=== PATIENT | male | born 1985 | race Caucasian/White ===

== ENCOUNTER 2016-11-09 13:36 | Emergency (ER) | payer OTHER, MEDICARE ==
[2016-11-09 13:52] VITALS: BP 164/90
--- NOTE | 2016-11-09 14:04 | PHYS DOC ---
Past Medical History Past Medical History: Anxiety, Bipolar, Schizophrenia, Other Additional Past Medical Histor: INTELLUCTUAL FUNCTION DISORDER Past Surgical History: No Surgical History Alcohol Use: None Drug Use: None Adult General Chief Complaint Chief Complaint: HAND PROBLEM HPI HPI Patient is a 31 year old M who presents with right hand pain and right foot pain. Patient states he was at work and stepped on a nail that went through his boot into his right foot. Patient states 45 minutes later was trying to break up some sheet rock and throw it into the trashcan and hit it with this fist and complains of pain to his hands. Patient sustained no other injuries. Patient has no other complaints. Review of Systems Review of Systems GEN: Denies fevers, chills, sweats HEENT: Denies blurred vision, sore throat CV: Denies chest pain RESP: Denies shortness of air, cough GI: Denies n/v/d NEURO: Denies confusion, dizziness MSK: Right hand and foot pain Current Medications Current Medications Current Medications Medications (Trade) Dose Ordered Sig/Gem Start Time Stop Time Status Last Admin Dose Admin Diphtheria/ Tetanus/Acell Pertussis (Boostrix) 0.5 ml ONCE ONCE 11/09/16 14:15 11/09/16 14:16 DC 11/09/16 14:28 0.5 ML Allergies Allergies Allergies Coded Allergies Type Severity Reaction Last Updated Verified No Known Drug Allergies 01/12/15 No Physical Exam Physical Exam GEN.: No apparent distress. Alert and oriented. HEENT: Head is normocephalic, atraumatic NECK: Supple. LUNGS: CTAB. HEART: RRR, S1, S2 present. Peripheral pulses intact ABDOMEN: Soft, nontender. Positive bowel sounds. EXTREMITIES: Without any cyanosis, tenderness palpation over the fifth metacarpal of the right hand in the proximal phalanx of the third digit. Small puncture wound to the plantar surface of the right foot consistent with a nail NEUROLOGIC: Normal speech, normal tone PSYCHIATRIC: Normal affect, normal mood. SKIN: No ulcerations Current Patient Data Vital Signs Vital Signs Date Time Temp Pulse Resp B/P (MAP) Pulse Ox O2 Delivery O2 Flow Rate FiO2 11/09/16 13:52 98.6 91 24 96 Room Air 98.6 EKG EKG [] Radiology/Procedures Radiology/Procedures X-ray right hand no obvious fracture[] Course & Med Decision Making Course & Med Decision Making Pertinent Labs and Imaging studies reviewed. (See chart for details) ED course: Patient was seen and examined emergency room x-ray of the right hand was ordered and patient's tetanus was updated. Patient does not need an x-ray of the right foot since it was a puncture wound and there is low probability of foreign body. 1453: Patient was updated on x-rays and plan to discharge home on Levaquin for the puncture wound MDM: After reviewing the chart, CC/HPI/PMH, physical exam, [radiological results], I do not believe the patient sustained a significant hand fracture warranting further workup and/or admission at this time. Patient be discharged home on Levaquin for the puncture wound to cover for pseudomonas and strep and staph. Patient is stable for discharge. Additional verbal discharge instructions were provided to the patient and that if symptoms get worse or any new symptoms arise that are worrisome to the patient he is to return to the emergency room immediately [] Dragon Disclaimer Dragon Disclaimer This electronic medical record was generated, in whole or in part, using a voice recognition dictation system. Departure Departure Impression: Primary Impression: Right hand pain Additional Impression: Puncture wound of right foot Disposition: HOME, SELF-CARE Condition: IMPROVED Referrals: Angie SINHA MD (PCP) Patient Instructions: Puncture Wound, [id number] Additional Instructions: Please follow up with your family physician in the next one to 2 days and return if symptoms increase Scripts Levofloxacin (LEVAQUIN) 500 Mg Tablet 1 TAB PO DAILY, #7 TAB Prov: JOSHUA PINEDA DO 11/09/16 Problem Qualifiers JOSHUA PINEDA DO Nov 09, 2016 14:04
[2016-11-09] MEDS ORDERED: DIPHTH,PERTUSS(ACELL),TET TOX 0.5 ML DISP.SYRIN. VAX IM ONE (14:15)
--- NOTE | 2016-11-09 14:39 | RAD ---
Right hand, 3 views, 11/09/2016: History: Pain, injury The lateral view is suboptimal due to technical factors. There is mild deformity of the third metacarpal shaft compatible with an old healed fracture. No acute fracture or dislocation is identified. IMPRESSION: No acute bony abnormality is detected.
[2016-11-09] MEDS ORDERED: LEVO500T59 PO (14:59)
== END 2016-11-09 15:11 | disposition home or self-care (01) ==
LOC: ER 13:36
DX: S91.331A Puncture wound without foreign body, right foot, initial encounter (principal); M79.641 Pain in right hand; F20.9 Schizophrenia, unspecified; W45.0XXA Nail entering through skin, initial encounter; Y93.89 Activity, other specified; Y99.8 Other external cause status; Y92.89 Other specified places as the place of occurrence of the external cause
CPT/HCPCS: 73130; 90471; 90715; 99284-25

== ENCOUNTER 2016-11-24 20:43 | Emergency (ER) | payer OTHER, MEDICARE ==
[~2016-11-24] VITALS: Ht 175.3 cm; Wt 82.1 kg
[~2016-11-24 20:43] MED LIST: LEVO500T59 PO
[2016-11-24 20:51] VITALS: BP 121/63
[2016-11-24] MEDS ORDERED: HYDROcodone/APAP 5/325MG 1 TAB TABLET PO ONE (21:15)
--- NOTE | 2016-11-24 21:25 | PHYS DOC ---
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 He states that he is having pain and discomfort. He states that he cannot move the toe. He has not taken anything for the pain and discomfort. He does have some swelling with some bruising noted. Review of Systems Review of Systems Constitutional: Denies fever or chills [] Eyes: Denies change in visual acuity, redness, or eye pain [] HENT: Denies nasal congestion or sore throat [] Respiratory: Denies cough or shortness of breath [] Cardiovascular: No additional information not addressed in HPI [] GI: Denies abdominal pain, nausea, vomiting, bloody stools or diarrhea [] : Denies dysuria or hematuria [] Musculoskeletal: Denies back pain right second toe pain and discomfort. Integument: Denies rash or skin lesions [] Neurologic: Denies headache, focal weakness or sensory changes [] Endocrine: Denies polyuria or polydipsia [] Current Medications Current Medications Current Medications Medications (Trade) Dose Ordered Sig/Gem Start Time Stop Time Status Last Admin Dose Admin Acetaminophen/ Hydrocodone Bitart (Lortab 5/325) 1 tab 1X ONCE 11/24/16 21:15 11/24/16 21:16 DC 11/24/16 21:14 1 TAB Allergies Allergies Allergies Coded Allergies Type Severity Reaction Last Updated Verified No Known Drug Allergies 01/12/15 No Physical Exam Physical Exam Constitutional: Well developed, well nourished, no acute distress, non-toxic appearance. [] HENT: Normocephalic, atraumatic, bilateral external ears normal, oropharynx moist, no oral exudates, nose normal. [] Eyes: PERRLA, EOMI, conjunctiva normal, no discharge. [] Neck: Normal range of motion, no tenderness, supple, no stridor. [] Cardiovascular:Heart rate regular rhythm Lungs & Thorax: No respiratory distress noted Skin: Warm, dry, no erythema, no rash. [] Extremities: Right second toe tenderness, no cyanosis, no clubbing, ROM intact, no edema. Bruising or discoloration noted slight swelling noted. Peripheral pulses 2+ cap refill brisk less than 2 seconds. Neurologic: Alert and oriented X 3, normal motor function, normal sensory function, no focal deficits noted. [] Psychologic: Affect normal, judgement normal, mood normal. [] Current Patient Data Vital Signs Vital Signs Date Time Temp Pulse Resp B/P (MAP) Pulse Ox O2 Delivery O2 Flow Rate FiO2 11/24/16 21:14 20 Room Air 11/24/16 20:51 98.5 103 99 98.5 EKG EKG [] Radiology/Procedures Radiology/Procedures [] Course & Med Decision Making Course & Med Decision Making Pertinent Labs and Imaging studies reviewed. (See chart for details) X-rays are negative for any bony abnormalities per Dr. Mejia. Patient will be discharged home with recommendations for ice packs on 20 minutes off 20 minutes several times a day elevation as much as possible. Patient's toe will be jb taped to the first great toe. Recommended Tylenol or ibuprofen for pain and discomfort. Patient be discharged home in stable condition signs symptoms to return back to emergency prior has been provided. He was provided with name and number of an orthopedic to follow-up with if he continues to have pain and discomfort. [] Dragon Disclaimer Dragon Disclaimer This electronic medical record was generated, in whole or in part, using a voice recognition dictation system. Departure Departure Impression: Primary Impression: Contusion of toe of right foot Disposition: HOME, SELF-CARE Condition: STABLE Referrals: Angie SINHA MD (PCP) DIETER MORALES MD Patient Instructions: Toe Injuries and Amputations Additional Instructions: X-rays are negative for fractures Activity as tolerated Tylenol or Ibuprofen for pain and discomfort Ice packs on 20 minutes several times a day Elevation as much as possible Jb tape your first and second toe together Followup with orthopedic in 1 week Return to emergency department as needed for signs and symptoms that become worse. Problem Qualifiers Primary Impression: Contusion of toe of right foot Encounter type: initial encounter Toe: lesser toe Damage to nail status: without damage Qualified Codes: S90.121A - Contusion of right lesser toe(s) without damage to nail, initial encounter CRISTI PRASAD APRN Nov 24, 2016 21:25
--- NOTE | 2016-11-25 08:07 | RAD ---
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 AP, lateral and oblique digital radiographs of the right foot were obtained. Mild degenerative changes are seen involving the first MTP joint. No fracture or dislocation of the right foot is seen. No radiopaque foreign body is noted. Impression: No fracture or dislocation of the right foot is seen.
== END 2016-11-24 21:37 | disposition home or self-care (01) ==
LOC: ER 20:43
DX: S90.121A Contusion of right lesser toe(s) without damage to nail, initial encounter (principal); F20.9 Schizophrenia, unspecified; F41.9 Anxiety disorder, unspecified; F31.9 Bipolar disorder, unspecified; W20.8XXA Other cause of strike by thrown, projected or falling object, initial encounter; Y93.89 Activity, other specified; Y99.8 Other external cause status; Y92.89 Other specified places as the place of occurrence of the external cause
CPT/HCPCS: 73630; 99284

== ENCOUNTER 2017-06-01 09:56 | Emergency (ER) | payer SELFPAY, MEDICARE, OTHER ==
[2017-06-01] MEDS: HYDROcodone/APAP 5/325MG 1 TAB TABLET PO (10:27)
== END 2017-06-01 11:19 | disposition home or self-care (01) ==
LOC: ER 09:56
DX: S62.394A Other fracture of fourth metacarpal bone, right hand, initial encounter for closed fracture (principal); F41.9 Anxiety disorder, unspecified; F31.9 Bipolar disorder, unspecified; F20.9 Schizophrenia, unspecified; Y04.0XXA Assault by unarmed brawl or fight, initial encounter; Y93.89 Activity, other specified; Y92.89 Other specified places as the place of occurrence of the external cause; Y99.8 Other external cause status
CPT/HCPCS: 29125; 73130; 99284-25

== ENCOUNTER 2017-07-05 08:51 | Emergency (ER) | payer SELFPAY, MEDICARE | END 2017-07-05 11:12 | disposition home or self-care (01) | LOC: ER 08:51 | DX: S62.307A Unspecified fracture of fifth metacarpal bone, left hand, initial encounter for closed fracture (principal); F41.9 Anxiety disorder, unspecified; F20.9 Schizophrenia, unspecified; F31.9 Bipolar disorder, unspecified; F17.210 Nicotine dependence, cigarettes, uncomplicated; W20.8XXA Other cause of strike by thrown, projected or falling object, initial encounter; Y93.89 Activity, other specified; Y92.89 Other specified places as the place of occurrence of the external cause; Y99.8 Other external cause status | CPT/HCPCS: 29125; 73130; 99284 ==

== ENCOUNTER 2017-11-15 09:30 | Emergency (ER) | payer SELFPAY ==
[~2017-11-15] VITALS: Ht 177.8 cm; Wt 74.8 kg
[~2017-11-15 09:30] MED LIST changes: +HYDR-971 PO; +NAPR-514 PO
[2017-11-15 09:42] VITALS: BP 135/86
--- NOTE | 2017-11-15 10:25 | RAD ---
EXAM: Left wrist, 3 views. HISTORY: Pain. COMPARISON: 07/26/2017. FINDINGS: 3 views left wrist are obtained. There has been interval healing of a fracture the base of the fifth metacarpal. No new fracture is seen. There is no dislocation or subluxation. IMPRESSION: 1. No acute osseous finding. 2. Healed fifth metacarpal fracture. Electronically signed by: Kenia Arechiga MD (11/15/2017 10:22 AM) [facility]
[2017-11-15] MEDS ORDERED: TRAM50TA PO (10:35)
--- NOTE | 2017-11-15 10:36 | PHYS DOC ---
Past Medical History Past Medical History: Anxiety, Bipolar, Schizophrenia, Other Additional Past Medical Histor: INTELLUCTUAL FUNCTION DISORDER Past Surgical History: No Surgical History Additional Information: 0.5 PPD Alcohol Use: None Drug Use: None Adult General Chief Complaint Chief Complaint: WRIST PAIN HPI HPI Patient is a 32 year old left wrist pain. Patient has chronic left wrist problem with previous fracture in his carpal bone and had surgery in the past. 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 He started having pain in his left wrist 2 3 days ago, and it is getting worse. Review of Systems Review of Systems Constitutional: Denies fever or chills [] Eyes: Denies change in visual acuity, redness, or eye pain [] HENT: Denies nasal congestion or sore throat [] Respiratory: Denies cough or shortness of breath [] Cardiovascular: No additional information not addressed in HPI [] GI: Denies abdominal pain, nausea, vomiting, bloody stools or diarrhea [] : Denies dysuria or hematuria [] Musculoskeletal: positive for left wrist pain Integument: Denies rash or skin lesions [] Neurologic: Denies headache, focal weakness or sensory changes [] Endocrine: Denies polyuria or polydipsia [] All other systems were reviewed and found to be within normal limits, except as documented in this note. Allergies Allergies Allergies Coded Allergies Type Severity Reaction Last Updated Verified No Known Drug Allergies 01/12/15 No Physical Exam Physical Exam Constitutional: Well developed, well nourished, no acute distress, non-toxic appearance. [] HENT: Normocephalic, [] Cardiovascular:Heart rate regular rhythm, no murmur [] Lungs & Thorax: Bilateral breath sounds clear to auscultation [] Skin: Warm, dry, no erythema, no rash. [] Back: No tenderness, no CVA tenderness. [] Extremities: No tenderness, no cyanosis, no clubbing, ROM intact, no edema. Left wrist is tender to palpation, there is no swelling, no redness, Neurologic: Alert and oriented X 3, normal motor function, normal sensory function, no focal deficits noted. [] Psychologic: Affect normal, judgement normal, mood normal. [] Current Patient Data Vital Signs Vital Signs Date Time Temp Pulse Resp B/P (MAP) Pulse Ox O2 Delivery O2 Flow Rate FiO2 9/13/18 09:42 97.8 70 14 135/86 (102) 98 Room Air 97.8 EKG EKG [] Radiology/Procedures Radiology/Procedures [][facility] [address] [place] [address] IMAGING REPORT Signed PATIENT: EDWIN GREY ACCOUNT: [id number] : 1985 LOCATION: ER AGE: 32 SEX: M EXAM STATUS: REG ER ORD. PHYSICIAN: STEPH PORTILLO DO REASON: left wrist pain PROCEDURE: WRIST 3V LEFT EXAM: Left wrist, 3 views. HISTORY: Pain. COMPARISON: 07/26/2017. FINDINGS: 3 views left wrist are obtained. There has been interval healing of a fracture the base of the fifth metacarpal. No new fracture is seen. There is no dislocation or subluxation. IMPRESSION: 1. No acute osseous finding. 2. Healed fifth metacarpal fracture. Electronically signed by: Kenia Ward MD (11/15/2017 10:22 AM) [facility] DICTATED and SIGNED BY: KENIA WARD MD DATE: 11/15/17 1021 Impressions: LEFT WRIST PAIN Course & Med Decision Making Course & Med Decision Making Pertinent Labs and Imaging studies reviewed. (See chart for details) [] Dragon Disclaimer Dragon Disclaimer This electronic medical record was generated, in whole or in part, using a voice recognition dictation system. Departure Departure Impression: Primary Impression: Wrist pain, left Disposition: 01 HOME, SELF-CARE Condition: STABLE Referrals: Angie ISNHA MD (PCP) Patient Instructions: Wrist Pain Scripts Tramadol Hcl (TRAMADOL HCL) 50 Mg Tablet 50 MG PO Q6HRS PRN for PAIN for 5 Days, #20 TAB Prov: STEPH PORTILLO DO 11/15/17 STEPH PORTILLO DO Nov 15, 2017 10:36
== END 2017-11-15 10:43 | disposition home or self-care (01) ==
LOC: ER 09:30
DX: M25.532 Pain in left wrist (principal); F41.9 Anxiety disorder, unspecified; F31.9 Bipolar disorder, unspecified; F20.9 Schizophrenia, unspecified; F17.200 Nicotine dependence, unspecified, uncomplicated
CPT/HCPCS: 73110; 99284

== ENCOUNTER 2018-04-24 11:33 | Emergency (ER) | payer SELFPAY ==
[~2018-04-24] VITALS: Ht 175.3 cm; Wt 78.0 kg
[~2018-04-24 11:33] MED LIST changes: +HYDR-3164 PO; -HYDR-971 PO; +TRAM50TA PO
[2018-04-24 11:35] VITALS: BP 139/91
--- NOTE | 2018-04-24 12:25 | PHYS DOC ---
Past Medical History Past Medical History: Anxiety, Bipolar, Schizophrenia, Other Additional Past Medical Histor: INTELLUCTUAL FUNCTION DISORDER Past Surgical History: No Surgical History Alcohol Use: None Drug Use: None Adult General Chief Complaint Chief Complaint: FLU SYMPTOM HPI HPI Patient is a 32 year old male who presents to the emergency Department today with complaints of a cold for the last 7 days. Patient states initially he had a fever for 4 days. Currently, he has a cough that is productive with white to yellow sputum, nasal congestion, sore throat, fatigue. He denies any abdominal pain and nausea, or vomiting. He states that he did have one loose stool earlier today. Patient also complains of pressure in his right ear, he denies any drainage or bleeding from his ear. Review of Systems Review of Systems Constitutional: see HPI Eyes: Denies change in visual acuity, redness, or eye pain [] HENT: See HPI Respiratory: Denies wheezing or shortness of breath; see HPI Cardiovascular: No additional information not addressed in HPI [] GI: Denies abdominal pain, nausea, or vomiting; see HPI Musculoskeletal: reports body aches Integument: Denies rash or skin lesions [] Neurologic: Denies headache, focal weakness or sensory changes [] Allergies Allergies Allergies Coded Allergies Type Severity Reaction Last Updated Verified No Known Drug Allergies 01/12/15 No Physical Exam Physical Exam Constitutional: Well developed, well nourished, no acute distress, non-toxic appearance. [] HENT: Normocephalic, atraumatic, bilateral external ears normal, left TM normal , effusion of R TM no perforation, oropharynx moist, post nasal drainage present , no oral exudates, nose congested. Eyes: PERRLA, conjunctiva normal, no discharge. [] Neck: Normal range of motion, no tenderness, supple, no stridor. [] Cardiovascular:Heart rate regular rhythm, no murmur [] Lungs & Thorax: Bilateral breath sounds clear to auscultation [] Skin: Warm, dry, no erythema, no rash. [] Extremities: No cyanosis, no clubbing, ROM intact Neurologic: Alert and oriented X 3, normal motor function, normal sensory function, no focal deficits noted. [] Psychologic: Affect normal, judgement normal, mood normal. [] Current Patient Data Vital Signs Vital Signs Date Time Temp Pulse Resp B/P (MAP) Pulse Ox O2 Delivery O2 Flow Rate FiO2 2/20/19 11:35 98.2 91 16 139/91 (107) 98 Room Air 98.2 EKG EKG [] Radiology/Procedures Radiology/Procedures [] Course & Med Decision Making Course & Med Decision Making Pertinent Labs and Imaging studies reviewed. (See chart for details) [] Dragon Disclaimer Dragon Disclaimer This electronic medical record was generated, in whole or in part, using a voice recognition dictation system. Departure Departure Impression: Primary Impression: URI with cough and congestion Additional Impression: Acute otitis media with effusion of right ear Disposition: HOME, SELF-CARE Condition: STABLE Referrals: Angie SINHA MD (PCP) Patient Instructions: Upper Respiratory Infection, Adult, [id number] Additional Instructions: [id number] mucinex. Recommend use of a Cool mist humidifier in room at bedtime. Alternate Tylenol or ibuprofen as needed for pain/fever. Increase clear fluids. Avoid airway triggers such as smoke, fragrance, dust, and pollen. Follow-up with your primary care doctor if symptoms persist, return to the ER if symptoms worsen. Problem Qualifiers NELLY BORGES APRN Apr 24, 2018 12:25
== END 2018-04-24 12:38 | disposition home or self-care (01) ==
LOC: ER 11:33
DX: J06.9 Acute upper respiratory infection, unspecified (principal); H65.191 Other acute nonsuppurative otitis media, right ear; J02.9 Acute pharyngitis, unspecified; R53.83 Other fatigue; M79.18 Myalgia, other site; F41.9 Anxiety disorder, unspecified; F31.9 Bipolar disorder, unspecified; F20.9 Schizophrenia, unspecified
CPT/HCPCS: 99281

== ENCOUNTER 2018-05-23 08:37 | Emergency (ER) | payer SELFPAY ==
[~2018-05-23] VITALS: Ht 177.8 cm; Wt 78.0 kg
[2018-05-23 08:46] VITALS: BP 154/75
[2018-05-23] MEDS ORDERED: AMOX500C PO (09:02)
--- NOTE | 2018-05-23 09:03 | PHYS DOC ---
Past Medical History Past Medical History: Anxiety, Bipolar, Schizophrenia, Other Additional Past Medical Histor: INTELLUCTUAL FUNCTION DISORDER Past Surgical History: No Surgical History Alcohol Use: None Drug Use: None Adult General Chief Complaint Chief Complaint: SORE THROAT HPI HPI Patient is a 33 year old male who presents with a sore throat x one week. The patient denies earaches. He is able to handle his own secretions. He has used OTC pain relievers with moderate relief. Review of Systems Review of Systems Constitutional: Denies fever or chills [] Eyes: Denies change in visual acuity, redness, or eye pain [] HENT: See HPI Respiratory: Denies cough or shortness of breath [] Cardiovascular: No additional information not addressed in HPI [] GI: Denies abdominal pain, nausea, vomiting, bloody stools or diarrhea [] : Denies dysuria or hematuria [] Musculoskeletal: Denies back pain or joint pain [] Integument: Denies rash or skin lesions [] Neurologic: Denies headache, focal weakness or sensory changes [] Endocrine: Denies polyuria or polydipsia [] All other systems were reviewed and found to be within normal limits, except as documented in this note. Allergies Allergies Allergies Coded Allergies Type Severity Reaction Last Updated Verified No Known Drug Allergies 01/12/15 No Physical Exam Physical Exam Constitutional: Well developed, well nourished, no acute distress, non-toxic appearance. [] HENT: Normocephalic, atraumatic, bilateral external ears normal, pharyngeal erythema, no oral exudates, nose normal. [] Eyes: PERRLA, EOMI, conjunctiva normal, no discharge. [] Neck: Normal range of motion, positive anterior cervical lymphadenopathy, supple , no stridor. [] Cardiovascular:Heart rate regular rhythm, no murmur [] Lungs & Thorax: Bilateral breath sounds clear to auscultation [] Abdomen: Bowel sounds normal, soft, no tenderness, no masses, no pulsatile masses. [] Skin: Warm, dry, no erythema, no rash. [] Back: No tenderness, no CVA tenderness. [] Extremities: No tenderness, no cyanosis, no clubbing, ROM intact, no edema. [] Neurologic: Alert and oriented X 3, normal motor function, normal sensory function, no focal deficits noted. [] Psychologic: Affect normal, judgement normal, mood normal. [] Current Patient Data Vital Signs Vital Signs Date Time Temp Pulse Resp B/P (MAP) Pulse Ox O2 Delivery O2 Flow Rate FiO2 05/23/18 08:46 97.9 69 20 154/75 (101) 99 Room Air 97.9 EKG EKG [] Radiology/Procedures Radiology/Procedures [] Course & Med Decision Making Course & Med Decision Making Pertinent Labs and Imaging studies reviewed. (See chart for details) [] Dragon Disclaimer Dragon Disclaimer This electronic medical record was generated, in whole or in part, using a voice recognition dictation system. Departure Departure Impression: Primary Impression: Pharyngitis Disposition: HOME, SELF-CARE Condition: STABLE Referrals: Angie SINHA MD (PCP) Patient Instructions: Strep Throat Additional Instructions: Take the antibiotic as directed. You may use ibuprofen or Tylenol for pain or fever. Follow-up with your primary care provider in 4 days if not improving or return to the emergency department if worsening. Scripts Amoxicillin (AMOXICILLIN) 500 Mg Capsule 2 CAP PO BID for strep, #40 CAP Prov: FRED BOLAÑOS APRN 05/23/18 FRED BOLAÑOS APRN May 23, 2018 09:03
== END 2018-05-23 09:06 | disposition home or self-care (01) ==
LOC: ER 08:37
DX: J02.9 Acute pharyngitis, unspecified (principal); F41.9 Anxiety disorder, unspecified; F31.9 Bipolar disorder, unspecified
CPT/HCPCS: 99283

== ENCOUNTER 2018-06-12 08:47 | Emergency (ER) | payer SELFPAY ==
[~2018-06-12] VITALS: Ht 177.8 cm; Wt 81.6 kg
[~2018-06-12 08:47] MED LIST changes: +AMOX500C PO
[2018-06-12 08:58] VITALS: BP 123/82
--- NOTE | 2018-06-12 09:06 | PHYS DOC ---
Past Medical History Past Medical History: Anxiety, Bipolar, Schizophrenia, Other Additional Past Medical Histor: INTELLUCTUAL FUNCTION DISORDER Past Surgical History: No Surgical History Alcohol Use: None Drug Use: None Adult General Chief Complaint Chief Complaint: SHOUDLER HPI HPI Patient is a 33 year old male with history of schizophrenia, bipolar, anxiety, who presents to the ED today complaining of 10 out of 10 right shoulder pain that began a week ago. No known injury. Patient states the pain is worse on range of motion. Patient also states he has donates plasma. He states he has donated plasma week ago from the right antecubital joint. Denies any fever. He also states he has tore up his right shoulder muscle before doing kickboxing. Review of Systems Review of Systems Constitutional: Denies fever or chills [] Musculoskeletal: Reports right shoulder pain Integument: Denies rash or skin lesions [] Neurologic: Denies headache, focal weakness or sensory changes [] All other systems were reviewed and found to be within normal limits, except as documented in this note. Allergies Allergies Allergies Coded Allergies Type Severity Reaction Last Updated Verified No Known Drug Allergies 01/12/15 No Physical Exam Physical Exam Constitutional: Well developed, well nourished, no acute distress, non-toxic appearance. [] Skin: Warm, dry, no erythema, no rash. [] Back: No tenderness, no CVA tenderness. [] Extremities: Right shoulder with no obvious deformity, right upper extremity with no obvious deformity, no tenderness, no erythema, no ecchymosis, full passive range of motion to the right shoulder and upper extremity. +2 right radial pulse. Cap refill less than 2 seconds the right fingers. Adequate radial , medial, ulnar sensation to the right upper extremity. Neurologic: Alert and oriented X 3, normal motor function, normal sensory function, no focal deficits noted. [] Psychologic: Affect normal, judgement normal, mood normal. [] Current Patient Data Vital Signs Vital Signs Date Time Temp Pulse Resp B/P (MAP) Pulse Ox O2 Delivery O2 Flow Rate FiO2 06/12/18 08:58 97.3 72 14 123/82 (96) 97 Room Air 97.3 EKG EKG [] Radiology/Procedures Radiology/Procedures []PROCEDURE: SHOULDER 2+V RIGHT Examination: 2 views of the right shoulder History: pain in the right shoulder COMPARISON: None available FINDINGS: The humerus head is within the glenoid. There is no acute fracture or dislocation identified. IMPRESSION: No acute osseous findings. Electronically signed by: Ramírez Yap MD (06/12/2018 9:24 AM) [id number] DICTATED and SIGNED BY: RAMÍREZ YAP MD DATE: 06/12/18 0924 Course & Med Decision Making Course & Med Decision Making Pertinent Labs and Imaging studies reviewed. (See chart for details) This is a 33-year-old male patient presenting to the ED today with right shoulder pain for week, no known injury. Right shoulder x-rays interpreted by radiologist are negative for any acute findings. Patient pain appears musculoskeletal. Patient is in no distress. Will be discharged with diclofenac and cyclobenzaprine. Provided orthopedic doctor for follow-up as an outpatient. Ice elevation encouraged. Dragon Disclaimer Dragon Disclaimer This electronic medical record was generated, in whole or in part, using a voice recognition dictation system. Departure Departure Impression: Primary Impression: Right shoulder pain Disposition: HOME, SELF-CARE Condition: STABLE Referrals: NO PCP (PCP) ANTHONY COSME MD follow up in 1-2 weeks Patient Instructions: Shoulder Pain, [id number] Additional Instructions: You were evaluated in the emergency room for right shoulder pain. Your right shoulder x-rays are negative for any acute findings. Please follow-up with orthopedic doctor provided in the next 1-2 weeks. Please ice and elevate the affected extremity. Scripts Diclofenac Sodium (DICLOFENAC SODIUM) 50 Mg Tablet.dr 1 TAB PO BID, #20 TAB 0 Refills Prov: FREDDY VELASCO APRN 06/12/18 Cyclobenzaprine Hcl (CYCLOBENZAPRINE HCL) 10 Mg Tablet 1 TAB PO TID, #30 TAB Prov: FREDDY VELASCO APRN 06/12/18 Problem Qualifiers Primary Impression: Right shoulder pain Chronicity: acute Qualified Codes: M25.511 - Pain in right shoulder FREDDY VELASCO APRN Jun 12, 2018 09:06
--- NOTE | 2018-06-12 09:26 | RAD ---
Examination: 2 views of the right shoulder History: pain in the right shoulder COMPARISON: None available FINDINGS: The humerus head is within the glenoid. There is no acute fracture or dislocation identified. IMPRESSION: No acute osseous findings. Electronically signed by: Ramírez Yap MD (06/12/2018 9:24 AM) [id number]
[2018-06-12] MEDS ORDERED: CYCL10TA2 PO (09:39)
[2018-06-12] MEDS ORDERED: DICL50TA4 PO (09:39)
== END 2018-06-12 09:45 | disposition home or self-care (01) ==
LOC: ER 08:47
DX: M25.511 Pain in right shoulder (principal); F41.9 Anxiety disorder, unspecified; F31.9 Bipolar disorder, unspecified; F20.9 Schizophrenia, unspecified
CPT/HCPCS: 73030; 99283